=== PATIENT | female | born 1970 | race Caucasian/White ===

== ENCOUNTER 2020-10-26 09:34 | Outpatient (CLI) | payer BC, OTHER | END 2020-10-26 09:35 | disposition home or self-care (01) | LOC: CSHMAMMO 09:34 | PROVIDERS: ATTEND Physician Assistant | DX: Z12.31 Encounter for screening mammogram for malignant neoplasm of breast (principal); Z80.3 Family history of malignant neoplasm of breast | CPT/HCPCS: 77063; 77067 ==

== ENCOUNTER 2020-12-19 12:00 | Emergency (ER) | payer BC, OTHER ==
[2020-12-19] MEDS ORDERED: Ketorolac Tromethamine 30 MG/ML VIAL ONE (13:21)
[2020-12-19] MEDS ORDERED: Ondansetron ODT 4 MG TAB ONE (13:27)
[2020-12-19] MEDS ORDERED: Cyclobenzaprine 10 MG TAB ONE (13:27)
== END 2020-12-19 13:57 | disposition home or self-care (01) ==
LOC: CSHERS 12:00
DX: M43.6 Torticollis (principal); M62.838 Other muscle spasm
CPT/HCPCS: 96372; 99283; J1885; Q0162

== ENCOUNTER 2021-07-05 14:17 | Emergency (ER) | payer BC, OTHER ==
[~2021-07-05 14:17] MED LIST: Iopamidol 370 76% 100 ML VIAL ONE
[2021-07-05 15:01] LABS: #Eosinphils 0.1 10x3/uL (0.0-0.5); #Monocytes 0.7 10x3/uL (0.0-1.1); #Neutrophils 9.3 10x3/uL (1.5-8.4); %Basophils 0.4 % (0.0-2.0); %Eosinophils 0.5 % (0.0-6.0); %Lymphocytes 10.8 % (18.0-47.0); %Monocytes 6.4 % (0.0-10.0); %Neutrophils 81.5 % (40.0-75.0); Hemoglobin 14.1 g/dL (12.0-15.5); Mean Corpuscular HGB CONC 33.7 g/dL (32.0-36.0); Mean Corpuscular Hemoglobin 31.6 pg (27.0-33.0); Mean Corpuscular Volume 93.9 fl (81.6-98.3); Mean Platelet Volume 9.3 fl (7.4-10.4); Platelet Count 292 10x3/uL (150-450); RBC Distribution Width 12.6 % (11.5-14.5); Red Blood Cell (RBC) Count 4.46 10x6/uL (3.90-5.03); White Blood Cell (WBC) Count 11.3 10x3/uL (3.5-10.5)
[2021-07-05 15:13] LABS: ALT (SGPT) 15 U/L (8-55); AST (SGOT) 20 U/L (5-34); Alkaline Phosphatase 75 U/L (40-110); Anion Gap 13 mmol/L (10-20); BUN (Urea Nitrogen) 18 mg/dL (7.0-18.7); Bilirubin, Total 0.7 mg/dL (0.2-1.2); Calc. Creatinine Clearance 0 mL/min (70-130); Calcium 9.1 mg/dL (7.8-10.44); Carbon Dioxide 23 mmol/L (22-29); Chloride 105 mmol/L (98-107); Glucose 84 mg/dL (70-105); Lipase 27 U/L (8-78); Potassium 3.9 mmol/L (3.5-5.1); Sodium 137 mmol/L (136-145)
[2021-07-05] MEDS ORDERED: Dicyclomine 20 MG/2 ML VIAL ONE (15:40)
[2021-07-05] MEDS ORDERED: Ketorolac Tromethamine 30 MG/ML VIAL ONE (15:40)
[2021-07-05 15:53] LABS: BHCG - Serum Negative (NEGATIVE); Pregs Control Background? CLEAR/WHITE (CLR/WHITE); Pregs Control Bar Appear? YES (CONTROL BAR)
[2021-07-05 16:17] LABS: Bilirubin Neg (Negative); Blood, Urine Negative (Negative); Clarity Clear (Clear); Glucose, Urine (Dipstick) Normal (Negative); Ketone, Urine Negative (Negative); Leukocyte Negative (Negative); Nitrite Negative (Negative); Protein, Urine (Dipstick) Negative (Neg-Trace); Specific Gravity, Urine 1.015 (1.002-1.036); Urobilinogen Normal mg/dL (Less than 2)
[2021-07-05] MEDS ORDERED: Mag-Al Plus 1200 MG/1200 MG/120 MG/30 ML UDCUP ONE (18:38)
[2021-07-05] MEDS ORDERED: Lidocaine Viscous Sol 2% 15 ml UD Cup ONE (18:38)
[2021-07-05] MEDS ORDERED: Ondansetron PF 4 MG/2 ML Vial ONE (19:09)
[2021-07-05] MEDS ORDERED: Morphine 4 MG/ML VIAL ONE (19:09)
[2021-07-05] MEDS ORDERED: HYDROcodone/Acetaminophen 10/325 mg Tablet ONE (20:43)
== END 2021-07-05 21:46 | disposition home or self-care (01) ==
LOC: CSHERS 14:17
DX: R10.13 Epigastric pain (principal)
CPT/HCPCS: 36415; 74177; 76705; 80053; 81003; 83605; 83690; 84484; 84703; 85025; 93005; 96372; 96374; 96375; J0500; J1885; J2270; J2405; Q9967

== ENCOUNTER 2021-07-06 16:36 | Emergency (ER) | payer BC, OTHER ==
[2021-07-06] MEDS ORDERED: Dicyclomine 20 MG/2 ML VIAL ONE (17:37)
[2021-07-06] MEDS ORDERED: Ibuprofen 200 MG TAB ONE (17:38)
[2021-07-06] MEDS ORDERED: Acetaminophen 500 MG TAB ONE (17:38)
== END 2021-07-06 18:40 | disposition home or self-care (01) ==
LOC: CSHERS 16:36
DX: R10.9 Unspecified abdominal pain (principal)
CPT/HCPCS: 96372; 99283; J0500

== ENCOUNTER 2021-11-23 15:04 | Outpatient (CLI) | payer BC, OTHER | END 2021-11-23 15:05 | disposition home or self-care (01) | LOC: CSHCT 15:04 | PROVIDERS: ATTEND Internal Medicine | DX: R91.1 Solitary pulmonary nodule (principal) | CPT/HCPCS: 71250 ==

== ENCOUNTER 2023-01-23 09:22 | Day surgery (SDC) | payer BC, OTHER ==
[2023-01-17 15:37] VITALS: BMI 30.1
[2023-01-23] MEDS ORDERED: Lidocaine 2% MPF 10 ML AMP (For Epidural Use) ONE (11:36)
[2023-01-23] MEDS ORDERED: PROPOFOL 40 ML ONE (11:36)
== END 2023-01-23 12:35 | disposition home or self-care (01) ==
LOC: CSHSDC 09:22
PROVIDERS: ATTEND Internal Medicine Gastroenterology
PROC: 0DBN8ZZ Excision of Sigmoid Colon, Via Natural or Artificial Opening Endoscopic (ICD-10-PCS; principal; 2023-01-23)
DX: Z12.11 Encounter for screening for malignant neoplasm of colon (principal); D12.4 Benign neoplasm of descending colon; K64.9 Unspecified hemorrhoids; J45.990 Exercise induced bronchospasm; K21.9 Gastro-esophageal reflux disease without esophagitis; G47.30 Sleep apnea, unspecified; G43.909 Migraine, unspecified, not intractable, without status migrainosus; R91.1 Solitary pulmonary nodule
CPT/HCPCS: 88305; J2704

== ENCOUNTER 2023-01-24 14:41 | Outpatient (CLI) | payer BC, OTHER | END 2023-01-24 14:42 | disposition home or self-care (01) | LOC: CSHMAMMO 14:41 | PROVIDERS: ATTEND Physician Assistant | DX: Z12.31 Encounter for screening mammogram for malignant neoplasm of breast (principal); Z80.3 Family history of malignant neoplasm of breast | CPT/HCPCS: 77063; 77067 ==

== ENCOUNTER 2023-12-24 08:19 | Outpatient (CLI) | payer BC | END 2023-12-24 08:20 | disposition home or self-care (01) | LOC: CSHSLEEP 08:19 | PROVIDERS: ATTEND Internal Medicine | DX: G47.33 Obstructive sleep apnea (adult) (pediatric) (principal) | CPT/HCPCS: 95810 ==

== ENCOUNTER 2024-02-13 09:09 | Outpatient (CLI) | payer BC | END 2024-02-13 09:10 | disposition home or self-care (01) | LOC: CSHSLEEP 09:09 | PROVIDERS: ATTEND Internal Medicine | DX: G47.33 Obstructive sleep apnea (adult) (pediatric) (principal) | CPT/HCPCS: 95811 ==